=== PATIENT | female | born 1965 | race Caucasian/White ===

== ENCOUNTER 2016-05-31 18:33 | Emergency (ER) | payer OTHER ==
--- NOTE | 2016-05-31 20:54 | DIAGNOSTIC IMAGING REPORT ---
PROCEDURE: XR RIBS UNILAT W/PA CHEST-LT INDICATION: TRAUMA/INJURY TECHNIQUE: Two views of the left ribs with single PA view chest. COMPARISON: None. FINDINGS: LEFT RIBS: Small metal markers placed over the left lower ribs (region of clinical symptoms). Left ribs are normal. CHEST: Lungs are clear. Heart and mediastinum are normal. 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 IMPRESSION: 1. Normal left ribs. 2. Negative chest.
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
--- NOTE | 2016-05-31 21:14 | ED ORDER SUMMARY ---
..... Patient: JOSE HOLGUIN OrderSheet [facility] VisitID: [id number] [address] [place] [address] 51y, F Registration Date/Time: 05/31/2016 ORDER SHEET Weight: 108.8 kg (stated) Allergies: No Known Drug Allergy GENERAL ORDERS: Ribs Unilat w PA Chest Left Urgent (19:44 05/31/2016 Fortino Elizabeth) (Ack 19:55 IJurca ER Tech1) (20:21 [facility]) MEDICATION ORDERS: IV FLUIDS: ORDER SHEET NOTES: [Electronically signed by Kristen Diallo R.N. (22:37 05/31/2016)] [Electronically signed by Jim Barney Dr. (09:25 06/01/2016)] [Electronically locked/signed by Kristen Diallo R.N. (22:37 05/31/2016)]
--- NOTE | 2016-05-31 21:14 | ED ORDER SUMMARY ---
..... Patient: JOSE HOLGUIN OrderSheet [facility] VisitID: [id number] [address] [place] [address] 51y, F Registration Date/Time: 05/31/2016 ORDER SHEET Weight: 108.8 kg (stated) Allergies: No Known Drug Allergy GENERAL ORDERS: Ribs Unilat w PA Chest Left Urgent (19:44 05/31/2016 Fortino Elizabeth) (Ack 19:55 IJurca ER Tech1) (20:21 [facility]) MEDICATION ORDERS: IV FLUIDS: ORDER SHEET NOTES: [Electronically signed by Kristen Diallo R.N. (22:37 05/31/2016)] [Electronically signed by Jim Barney Dr. (09:25 06/01/2016)] [Electronically locked/signed by Kristen Diallo R.N. (22:37 05/31/2016)]
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
--- NOTE | 2016-06-01 09:26 | ED MAR SUMMARY ---
..... Medication Administration Record [facility] [address], [place] [id number] Patient: JOSE HOLGUIN Visit ID: [id number] 51y, F Weight: 108.8 kg Height/Length: 67 in BMI: 37.6 ALLERGIES: No Known Drug Allergy
--- NOTE | 2016-06-01 09:26 | ED MAR SUMMARY ---
..... Medication Administration Record [facility] [address], [place] [id number] Patient: JOSE HOLGUIN Visit ID: [id number] 51y, F Weight: 108.8 kg Height/Length: 67 in BMI: 37.6 ALLERGIES: No Known Drug Allergy
--- NOTE | 2016-06-01 09:26 | ED MED RECONCILIATION SUMMARY ---
Patient: JOSE HOLGUIN Medication Reconciliation Report [facility] VisitID: [id number] [address] [place] [address] 51y, F Registration Date/Time: 05/31/2016 Weight: 108.8 kg Height/Length: 67 in. BMI: 37.6 ALLERGIES: No Known Drug Allergy The patient's Home Medications are listed below: NONE. The source(s) of the original Home Medication information: patient The following Medications were given to the patient in the Emergency Department: None. The following Medications were prescribed to the patient: Acetaminophen (available over the counter): take according to label instructions. -- Jim Barney Dr. Motrin (available over the counter): take according to label instructions. -- Jim Barney Dr.
--- NOTE | 2016-06-01 09:26 | ED MED RECONCILIATION SUMMARY ---
Patient: JOSE HOLGUIN Medication Reconciliation Report [facility] VisitID: [id number] [address] [place] [address] 51y, F Registration Date/Time: 05/31/2016 Weight: 108.8 kg Height/Length: 67 in. BMI: 37.6 ALLERGIES: No Known Drug Allergy The patient's Home Medications are listed below: NONE. The source(s) of the original Home Medication information: patient The following Medications were given to the patient in the Emergency Department: None. The following Medications were prescribed to the patient: Acetaminophen (available over the counter): take according to label instructions. -- Jim Barney Dr. Motrin (available over the counter): take according to label instructions. -- Jim Barney Dr.
--- NOTE | 2016-06-01 09:26 | ED DISCHARGE INSTRUCTIONS ---
Patient: JOSE HOLGUIN General Instructions [facility] VisitID: [id number] [place] [address] 51y, F Registration Date/Time: 05/31/2016 Blood pressure normal. Oxygen saturation normal. Minor chest injury. (crush). INSTRUCTIONS Warnings: GENERAL WARNINGS: Return or contact your physician immediately if your condition worsens or changes unexpectedly, if not improving as expected, or if other problems arise. SPECIFICALLY, return if you develop weakness, numbness, tingling, pain or incontinence. shortness of breath, fever, or difficulty breathing. OTC Medications: Acetaminophen (available over the counter): take according to label instructions. Motrin (available over the counter): take according to label instructions. Follow-up: Return to the emergency department as needed. Follow up with your doctor in three days. Reason for referral: recheck today's concerns. Summary of care provided to patient via paper. Screening today revealed the patient's blood pressure to be in the normal range. The patient should follow up with a primary care provider for blood pressure management. Understanding of the discharge instructions verbalized by patient. ADDITIONAL INFORMATION Chest Contusion Acontusion is a bruise to the skin, muscle or ribs. It may cause pain, tenderness, swelling and a purplish discoloration. Contusions take a few days to a few weeks to heal. Home Care: Rest. You should not be doing any heavy lifting or strenuous exertion, or any activity that causes pain. You may use acetaminophen (Tylenol) or ibuprofen (Motrin, Advil) to control pain, unless another pain medicine was prescribed. [ NOTE: If you have chronic liver or kidney disease or ever had a stomach ulcer or GI bleeding, talk with your doctor before using these medicines.] Follow Up with your doctor during the next week or as directed. Get Prompt Medical Attention if any of the following occur: Shortness of breath Increasing chest pain with breathing Dizziness, weakness or fainting New or worsening of abdominal pain Fever of 100.4F (38C) or higher, or as directed by your healthcare provider Rib Fracture You have a fracture (break) of one or more ribs. Rib fractures do not require a cast like other bones. They will heal by themselves in about 4-6 weeks. The first 3-4 weeks will be the most painful because deep breathing, coughing or changing position from sitting to lying down, may cause the broken ends to move slightly. Home Care: Rest. You should not be doing any heavy lifting or strenuous exertion until the pain goes away. Because it hurts to breathe when you have a broken rib, there is risk of getting pneumonia from poor airflow through your lungs. To prevent this: Take four very deep breaths at least four times a day (exhale through pursed lips as if you are blowing up a balloon). If an "incentive spirometer" (breathing exercise device) was given to you, use it at least four times a day, or as directed. Apply an ice pack (ice cubes in a plastic bag, wrapped in a towel) over the injured area for 20 minutes every 1-2 hours the first day. Continue with ice packs 3-4 times a day for the next two days, then as needed for the relief of pain and swelling. You may use acetaminophen (Tylenol) or ibuprofen (Motrin, Advil) to control pain, unless another pain medicine was prescribed. [NOTE: If you have chronic liver or kidney disease or ever had a stomach ulcer or GI bleeding, talk with your doctor before using these medicines.] If your pain is not controlled by the treatment given, contact your doctor. Sometimes a stronger pain medicine may be needed. A nerve block (numbing the nerve between the ribs) can be performed in case of severe pain. Follow Up with your doctor during the next week, or as advised. Rarely, a broken rib will cause complications within the first few days that may not be evident during your initial exam (such as, collapsed lung, bleeding around the lung or into the abdomen, or pneumonia). Therefore, watch for the signs below. [NOTE: If x-rays were taken, they will be reviewed by a radiologist. You will be notified of any new findings that may affect your care.] Get Prompt Medical Attention if any of the following occur: Shortness of breath Increasing chest pain with breathing Dizziness, weakness or fainting New or worsening abdominal pain Fever of 100.4F (38C) or higher, or as directed by your healthcare provider Congested cough You have been given the following additional information: Chest Wall Contusion Fracture, Rib (Electronically signed by Jim Barney Dr. 06/01/2016 9:25)
== END 2016-05-31 21:27 | disposition home or self-care (01) ==
LOC: ED SRH 18:33
DX: S29.8XXA Other specified injuries of thorax, initial encounter (principal); X50.0XXA Overexertion from strenuous movement or load, initial encounter; Y93.9 Activity, unspecified; Y92.009 Unspecified place in unspecified non-institutional (private) residence as the place of occurrence of the external cause; Y99.9 Unspecified external cause status; Z87.891 Personal history of nicotine dependence